=== PATIENT | male | born 1960 | race Caucasian/White ===

== ENCOUNTER → 2023-04-13 11:46 | Outpatient (CLI) | payer BC, SELFPAY ==
--- NOTE | ~2023-04-13 | XR_ITS ---
Clinical Indication: Shortness of breath PA and lateral views of the chest: Comparison: None Findings: The lungs are clear, without evidence of focal consolidation or pleural effusion. Cardiome diastinal silhouette is within normal limits. Bones and soft tissues are unremarkable. Impression: Normal chest. Reviewed, dictated and finalized at [facility]. Impression: Normal chest.
== END ==
PROVIDERS: PCP Internal Medicine; Visit Provider Internal Medicine
DX: R06.02 Shortness of breath (principal)
CPT/HCPCS: 71046